=== PATIENT | male | born 1990 | race Caucasian/White ===

== ENCOUNTER 2023-05-22 20:03 | Emergency (ER) | payer SELFPAY ==
[2023-05-22 20:07] VITALS: BP 153/96; PULSE 92; RESP 16; TEMP 36.9; O2SAT 96; BMI 43.6
--- NOTE | 2023-05-22 20:14 | ED_ITS ---
HPI - General Adult General Chief complaint: Animal Bite Stated complaint: AMIMAL BITE CAT Time Seen by Provider: 05/22/23 20:14 Source: patient Mode of arrival: walk-in History of Present Illness HPI narrative: Patient presents to emergency department complaining of Bites. Patient states he had his catheter on his lap while sitting down in a dog came to attack him. STARTED fighting and biting and accidentally bit both of the wires hands. A shunt states that it is an indoor cat and ARE up-to-date. He is not certain was his last tetanus shot was but he does not want to be updated right now because he thinks it was less than 10 years ago when he had his surgery. Patient complains of pain worse to the palms and thenar eminence. He denies any active bleeding. He denies any numbness. Related Data Previous Rx's Medication Instructions Recorded amoxicillin 875 mg-potassium 1 tab PO Q12H #20 tabs 05/22/23 clavulanate 125 mg tablet mupirocin 2 % topical ointment 1 applic topical TID 7 days #15 05/22/23 (Centany) grams Allergies Allergy/AdvReac Type Severity Reaction Status Date / Time No Known Drug Allergies Allergy Verified 05/22/23 20:07 Review of Systems ROS Status of ROS 10 or more systems reviewed and unremarkable except as noted in history and below Exam Narrative Exam Narrative: Nurses notes and vital signs reviewed and patient is not hypoxic. General: Nontoxic, Well-appearing and in no apparent distress. Skin: Warm, dry, no pallor noted. Head: Normocephalic, atraumatic. Neck: Supple, non-tender. Eye: Pupils are equal, round and EOMI. No scleral icterus. Ears, Nose, Mouth, and Throat: TM clear, no posterior oropharynx erythema or nasal mucosal hypertrophy, uvula is mid-line Oral mucosa is moist Cardiovascular: Regular Rate and Rhythm without murmur, gallop or rub. Respiratory: No accessory muscle use or respiratory distress. Lungs are clear to auscultation, no wheezing, rales or rhonchi Chest Wall: no tenderness Back: No midline thoracic or lumbar vertebral tenderness. No CVA tenderness Musculoskeletal: Multiple puncture wright to bilateral hands, over the 3rd and 2nd finger and thumb. Nail itself is not affected. There is no subungual hematomas noted. Full range of motion, no bony tenderness. Puncture wright to the right thenar eminence and over the flexor retinaculum of the thumb. There is no hematoma or ecchymosis noted. Radial pulses +2. Capillary refill is brisk. Patient has normal sensation to the distal thumb, middle finger, and pinky. He is able to oppose all digits with thumb bilaterally. normal ROM, no calf or popliteal tenderness, no lower extremity edema/swelling GI: Abdomen is soft, non-distended. Normal bowel sounds. No masses appreciated. No tenderness to palpation. No rebound, guarding, or rigidity noted. Neurological: A&O x4. No cranial nerve dysfunction observed. No truncal ataxia. Moves all extremities. Sensation intact. Psychiatric: Cooperative and interactive. Normal mood and affect. Constitutional Vital Signs, click to edit/add: Last Vital Signs Temp 98.4 F 05/22/23 20:07 Pulse 92 H 05/22/23 20:07 Resp 16 05/22/23 20:07 BP 153/96 H 05/22/23 20:07 Pulse Ox 96 05/22/23 20:07 O2 Del Method Room Air 05/22/23 20:20 Course Vital Signs Vital signs: Vital Signs Temperature 98.4 F 05/22/23 20:07 Pulse Rate 92 H 05/22/23 20:07 Respiratory Rate 16 05/22/23 20:07 Blood Pressure 153/96 H 05/22/23 20:07 Pulse Oximetry 96 05/22/23 20:07 Oxygen Delivery Method Room Air 05/22/23 20:07 Temperature 98.4 F 05/22/23 20:07 Pulse Rate 92 H 05/22/23 20:07 Respiratory Rate 16 05/22/23 20:07 Blood Pressure 153/96 H 05/22/23 20:07 Pulse Oximetry 96 05/22/23 20:07 Oxygen Delivery Method Room Air 05/22/23 20:20 Medical Decision Making MDM Narrative Medical decision making narrative: Wound care was performed. The wounds were soaked and irrigated. Patient had bacitracin applied. He was instructed on how to perform wound care. He is given a prescription for Augmentin and mupirocin. Patient had bilateral hand x-rays ordered because he was concerned that some of the punctures were deep however by the time the x-ray tech came to take him for x-ray the patient refused the x- rays and stated he did not want to have them done. He understands that he could have an infection to his balance and suffer permanent disability, loss of limb and . He is awake alert oriented ?4 does not have any cognitive impairment and is able to make educated decisions. X-rays were refused by patient. Patient instructed On Wound Care. I answered all questions. Discussed discharge instructions including standard anticipatory guidance and what should prompt a return to the emergency department, including if they get worse are not getting better or develops any new or concerning symptoms. I've given them specific time frame in which to follow-up, and who to follow-up with. The patient demonstrates understanding. Patient is nontoxic and stable for discharge with outpatient follow-up. This note was created with the assistance of a speech recognition program. Although the intention is to generate documents that actually reflects the content of the visit, no guarantees can be provided that every mistake has been identified and corrected by editing. Discharge Plan Discharge Chief Complaint: Animal Bite Clinical Impression: Cat bite Patient Disposition: Home, Self-Care Time of Disposition Decision: 20:21 Condition: Good Mode of Transportation: Private Vehicle Prescriptions / Home Meds: New amoxicillin-pot clavulanate 875-125 mg tablet 1 tab PO Q12H Qty: 20 0RF mupirocin [Centany] 2 % ointment 1 applic topical TID 7 Days Qty: 15 0RF Instructions: Animal Bite (ED) Stand Alone Forms: Portal Instructions Referrals: Physician,Non-Staff, MD [Primary Care Provider] - 1 week Discharge Date/Time: 05/22/23 20:59
--- NOTE | 2023-05-22 20:20 | PC.NURSE ---
bilat hands have scratches and bites, bleeding controlled and hands soaking at this time
[2023-05-22] MEDS: BACITRACIN 0.9 GM PACKET 1 PACKET TOPICAL (21:27)
== END 2023-05-22 20:59 | disposition home or self-care (01) ==
PROVIDERS: Emergency Provider Emergency Medicine
DX: S61.452A Open bite of left hand, initial encounter (principal); S61.451A Open bite of right hand, initial encounter; W55.01XA Bitten by cat, initial encounter
CPT/HCPCS: 99283

== ENCOUNTER 2023-06-18 22:28 | Emergency (ER) | payer SELFPAY ==
[2023-06-18 22:31] VITALS: BP 168/104; PULSE 86; RESP 16; TEMP 37.3; O2SAT 97; BMI 43.0
--- NOTE | 2023-06-18 22:39 | ED_ITS ---
HPI - General Adult General Chief complaint: Dental/Oral Stated complaint: DENTAL PAIN Time Seen by Provider: 06/18/23 22:36 Source: patient Mode of arrival: walk-in History of Present Illness HPI narrative: Patient's this emergency department complaining of left bottom side of the tooth pain that started on Monday. Patient states he has not been able to get into the dentist until June. He had a tooth break of but the pain did not start until Monday. He's noted little bit of swelling to the left jaw. Tooth #17. Patient has been taking Tylenol Motrin without any relief. He has applied Orajel also. He states on Monday he felt like he had a fever. Last dose of Tylenol and Motrin was 1 hour prior to arriving to the emergency department. He states the pain radiates to the neck to the forehead the ear. Denies any throat swellin g. He states his blood pressure was elevated 1 time prior and it was because of pain. Patient states he has Augmentin left from the Bite visit several weeks ago so he has been taking that in the last 2 days and it has not been helping. Related Data Previous Rx's Medication Instructions Recorded clindamycin HCl 300 mg capsule 300 mg PO Q8H 10 days #30 caps 06/18/23 hydrocodone 5 mg-acetaminophen 325 1 tab PO Q6H PRN pain 3 days #10 06/18/23 mg tablet tabs Allergies Allergy/AdvReac Type Severity Reaction Status Date / Time No Known Drug Allergies Allergy Verified 05/22/23 20:07 Review of Systems ROS Status of ROS 10 or more systems reviewed and unremarkable except as noted in history and below [facility] Social History Smoking status: Current every day smoker Exam Narrative Exam Narrative: General: The patient is comfortable, alert and oriented x3, well appearing, non toxic in no apparent distress. Head: Atraumatic and normocephalic. Eyes: Normal conjunctiva ENT: The oropharynx is normal. No pharyngeal erythema, uvular edema, tonsillar exudates, asymmetry or trismus. Uvula is midline. Mouth is normal to inspection with the exception of a pain on percussion of the tooth #17 and evidence of dental caries. There is no evidence of facial asymmetry or abscess formation. Floor of the mouth is soft. No tenderness in the submental or submandibular space. No tongue elevation or deviation. The patient has no evidence of periapical abscess, gingivitis or other acute pathology. Airway is patent. Neck: The neck demonstrates normal range of motion. No meningeals signs are present. No stridor. No masses or lymphandenopathy noted. Respiratory: No acute distress, lungs are clear to auscultation, no wheezing, rhonchi, or rales noted. No stridor or retractions are noted. Cardiovascular: Regular rate and rhythm Skin: The skin exam shows no evidence of rashes Neuro: Alert and oriented x4, normal speech Lymphatic: No cervical lymphadenopathy Constitutional Vital Signs, click to edit/add: Last Vital Signs Temp 99.1 F 06/18/23 22:31 Pulse 86 06/18/23 22:31 Resp 16 06/18/23 22:31 BP 168/104 H 06/18/23 22:31 Pulse Ox 97 06/18/23 22:31 O2 Del Method Room Air 06/18/23 22:31 Course Vital Signs Vital signs: Vital Signs Temperature 99.1 F 06/18/23 22:31 Pulse Rate 86 06/18/23 22:31 Respiratory Rate 16 06/18/23 22:31 Blood Pressure 168/104 H 06/18/23 22:31 Pulse Oximetry 97 06/18/23 22:31 Oxygen Delivery Method Room Air 06/18/23 22:31 Temperature 99.1 F 06/18/23 22:31 Pulse Rate 86 06/18/23 22:31 Respiratory Rate 16 06/18/23 22:31 Blood Pressure 168/104 H 06/18/23 22:31 Pulse Oximetry 97 06/18/23 22:31 Oxygen Delivery Method Room Air 06/18/23 22:31 Discharge Plan Discharge Chief Complaint: Dental/Oral Clinical Impression: Dental abscess Patient Disposition: Home, Self-Care Time of Disposition Decision: 23:07 Condition: Good Mode of Transportation: Private Vehicle Prescriptions / Home Meds: New clindamycin HCl 300 mg capsule 300 mg PO Q8H 10 Days Qty: 30 0RF hydrocodone-acetaminophen 5-325 mg tablet 1 tab PO Q6H PRN (Reason: pain) 3 Days Qty: 10 0RF Instructions: Dental Abscess (ED) Additional Instructions: Follow up with dentist Stand Alone Forms: Portal Instructions Discharge Date/Time: 06/18/23 23:48
[2023-06-18] MEDS: CLINDAMYCIN HCL 150 MG CAPSULE 450 MG PO (23:38)
[2023-06-18] MEDS: BENZOCAINE 30 ML, lidocaine HCL 15 ML MM (23:38)
== END 2023-06-18 23:48 | disposition home or self-care (01) ==
PROVIDERS: Emergency Provider Emergency Medicine
DX: K04.7 Periapical abscess without sinus (principal); F17.210 Nicotine dependence, cigarettes, uncomplicated
CPT/HCPCS: 99283